=== PATIENT | female | born 2005 | race Caucasian/White ===

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

== ENCOUNTER 2023-02-13 16:30 | Emergency (ER) | payer OTHER ==
[2023-02-13 16:44] VITALS: TEMP 98.6
[2023-02-13] MEDS ORDERED: SODIUM CHLORIDE 0.9% 1,000 ML IV STA (17:44)
[2023-02-13 17:58] LABS: Basophils % (A) 0 %; Eosinophils # (A) 0.2 k/uL (0-0.7); Eosinophils % (A) 2 %; HCT 40.9 % (34.0-46.0); HGB 14.3 gm/dL (11.4-16.0); Lymphocytes # (A) 2.9 k/uL (1.0-4.8); Lymphocytes % (A) 28 %; MCH 29.1 pg (25.0-35.0); MCV 83.2 fL (80.0-100.0); Mean Platelet Volume 7.9; Monocytes # (A) 0.4 k/uL (0-1.0); Monocytes % (A) 4 %; Neutrophils # (A) 6.6 k/uL (1.3-7.7); Neutrophils % (A) 64 %; Platelet Count 238 k/uL (150-450); RBC 4.91 m/uL (3.80-5.40); RDW 12.4 % (11.5-15.5); WBC 10.3 k/uL (4.0-11.0)
[2023-02-13 18:10] LABS: ALT 42 U/L (4-34); AST 39 U/L (14-36); African American GFR (CKD) >90 (>60 ml/min/1.73 sqM); Albumin 4.6 g/dL (3.5-5.0); Alkaline Phosphatase 81 U/L (38-126); Anion Gap 11 mmol/L; Blood Urea Nitrogen 7 mg/dL (7-17); Calcium 9.7 mg/dL (8.4-10.2); Carbon Dioxide 22 mmol/L (22-30); Chloride 103 mmol/L (98-107); Glucose 102 mg/dL (74-99); Non-African American GFR(CKD) >90 (>60 ml/min/1.73 sqM); Sodium 136 mmol/L (137-145); Total Bilirubin 0.5 mg/dL (0.2-1.3)
[2023-02-13 18:19] LABS: Appearance,Urine Clear (Clear); Bilirubin,Urine Negative (Negative); Blood,Urine Negative (Negative); Color,Urine Colorless; Glucose,Urine (UA) Negative (Negative); Ketones,Urine 1+ (Negative); Leukocyte Esterase,Urine Negative (Negative); Nitrite,Urine Negative (Negative); PH, Urine 6.5 (5.0-8.0); Protein,Urine Negative (Negative); Specific Gravity,Urine 1.004 (1.001-1.035); Urobilinogen,Urine <2.0 mg/dL (<2.0)
[2023-02-13 18:22] LABS: HCG,Qualitative Serum Not Detected
[2023-02-13 18:37] LABS: INR 0.9 (<1.2); Partial Thromboplastin Time 26.1 sec (22.0-30.0); Prothrombin Time 9.4 sec (9.0-12.0)
--- NOTE | 2023-02-13 19:25 | XR ---
EXAMINATION TYPE: XR chest 2V DATE OF EXAM: 02/13/2023 6:10 PM COMPARISON: Chest radiographs from 10/08/2022 TECHNIQUE: XR chest 2V Frontal and lateral views of the chest. CLINICAL INDICATION:Female, 17 years old with history of Chest Pain; FINDINGS: Lungs/Pleura: There is no evidence of pleural effusion, focal consolidation, or pneumothorax. Pulmonary vascularity: Unremarkable. Heart/mediastinum: Cardiomediastinal silhouette is unremarkable. Musculoskeletal: No acute osseous pathology. IMPRESSION: No acute cardiopulmonary disease/process. No significant change from prior examination.
--- NOTE | 2023-02-13 19:50 | ED ---
Chest Pain HPI - General Chief Complaint: Chest Pain Stated Complaint: Chest Pain, sent by Urgent Care Time Seen by Provider: 02/13/23 17:23 Source: patient Mode of arrival: wheelchair Limitations: no limitations - History of Present Illness Initial Comments: 17-year-old female presenting with chief complaint of chest pain. Intermittent pain is been ongoing since noon today. Sharp in nature. It appears to be pleuritic from the patient's description. She denies shortness of breath. No palpitations. No nausea, vomiting, abdominal pain. No URI like symptoms. No fevers or chills. No control pills, recent long travel, recent surgery. - Related Data Home Medications Medication Instructions Recorded Confirmed Norelgestromin/Ethin.estradiol 1 patch TRANSDERM DIRECTED 02/13/23 02/13/23 [Xulane 150-35 Mcg/Day Patch] Allergies Allergy/AdvReac Type Severity Reaction Status Date / Time No Known Allergies Allergy Verified 02/13/23 16:43 Review of Systems ROS Statement: Those systems with pertinent positive or pertinent negative responses have been documented in the HPI. ROS Other: All systems not noted in ROS Statement are negative. EKG Findings - EKG Comments: EKG Findings:: Sinus rhythm with short FL interval. Ventricular rate 62. FL interval 105. QRS 94. QT 411. QTC 416. Normal axis. Past Medical History Past Medical History: Asthma History of Any Multi-Drug Resistant Organisms: None Reported Past Surgical History: No Surgical Hx Reported Past Psychological History: No Psychological Hx Reported Smoking Status: Never smoker Past Alcohol Use History: None Reported Past Drug Use History: None Reported General Exam Limitations: no limitations General appearance: alert, in no apparent distress Head exam: Present: atraumatic, normocephalic, normal inspection Eye exam: Present: normal appearance, EOMI Neck exam: Present: normal inspection, full ROM Respiratory exam: Present: normal lung sounds bilaterally. Absent: respiratory distress, wheezes, rales, rhonchi, stridor Cardiovascular Exam: Present: regular rate, normal rhythm, normal heart sounds. Absent: systolic murmur, diastolic murmur, rubs, gallop, clicks Extremities exam: Absent: pedal edema Neurological exam: Present: alert, oriented X3, CN II-XII intact Psychiatric exam: Present: normal affect, normal mood Skin exam: Present: warm, dry, intact, normal color. Absent: rash Course Vital Signs 02/13/23 02/13/23 02/13/23 16:41 19:00 19:53 Temperature 98.6 F 98.6 F Pulse Rate 63 58 L 56 L Respiratory 20 12 16 Rate Blood Pressure 144/81 125/81 117/71 O2 Sat by Pulse 100 98 98 Oximetry Chest Pain MDM - MDM Was pt. sent in by a medical professional or institution (, HERNANDO, BEARING MACHINE OPERATOR, urgent care, hospital, or senior living...) When possible be specific @ -No Did you speak to anyone other than the patient for history (EMS, parent, family, police, friend...)? What history was obtained from this source @ -No Did you review nursing and triage notes (agree or disagree)? Why? @ -I reviewed and agree with nursing and triage notes Were old charts reviewed (outside hosp., previous admission, EMS record, old EKG, old radiological studies, urgent care reports/EKG's, senior living records)? Report findings @ -No old charts were reviewed Differential Diagnosis (chest pain, altered mental status, abdominal pain women, abdominal pain men, vaginal bleeding, weakness, fever, dyspnea, syncope, headache, dizziness, GI bleed, back pain, seizure, CVA, palpatations, mental health, musculoskeletal)? @ -MDM Differential Chest Pain: Stable Angina, Unstable Angina, STEMI, NSTEMI Aortic Dissection, Pneumothorax, Musculoskeletal, Esophageal Spasm GERD, Cholecystitis, Pancreatitis, Zoster This is not meant to be an all-inclusive list. EKG interpreted by me (3pts min.). @ -As above X-rays interpreted by me (1pt min.). @ chest x-ray shows no acute cardiopulmonary process CT interpreted by me (1pt min.). @ -None done U/S interpreted by me (1pt. min.). @ -None done What testing was considered but not performed or refused? (CT, X-rays, U/S, labs)? Why? @ -None What meds were considered but not given or refused? Why? @ -None Did you discuss the management of the patient with other professionals (professionals i.e. HERNANDO Deluca, BEARING MACHINE OPERATOR, lab, RT, psych nurse, social media coordinator, maternity nurse, teacher, fire prevention officer, high risk case manager)? Give summary @ -No Was smoking cessation discussed for >3mins.? @ -No Was critical care preformed (if so, how long)? @ -No Were there social determinants of health that impacted care today? How? (Homelessness, low income, unemployed, alcoholism, drug addiction, transportation, low edu. Level, literacy, decrease access to med. care, [facility], rehab)? @ -No Was there de-escalation of care discussed even if they declined (Discuss DNR or withdrawal of care, Hospice)? DNR status @ -No What co-morbidities impacted this encounter? (DM, HTN, Smoking, COPD, CAD, Cancer, CVA, ARF, Chemo, Hep., AIDS, mental health diagnosis, sleep apnea, morbid obesity)? @ -None Was patient admitted / discharged? Hospital course, mention meds given and route, prescriptions, significant lab abnormalities, going to OR and other pertinent info. @ -17-year-old female presenting with chief complaint of chest pain that started today. Sharp and pleuritic in nature. Physical examination unremarkable. Laboratory shows no leukocytosis or anemia. Negative troponin and d-dimer. EKG shows no ischemic changes. Negative hCG. Negative chest x- ray. On reassessment patient is resting comfortably in bed. She is educated on today's findings and on treatment of musculoskeletal chest pain and anxiety. Follow-up with PCP. Report back to ER with any new or worsening symptoms. Discussed return parameters and answered all questions. Patient conveyed verbal understanding and agreed to the plan. I discussed this case in detail with my attending Dr. Mcneil Undiagnosed new problem with uncertain prognosis? @ -No Drug Therapy requiring intensive monitoring for toxicity (Heparin, Nitro, Insulin, Cardizem)? @ -No Were any procedures done? @ -No Diagnosis/symptom? @ -Chest wall pain Acute, or Chronic, or Acute on Chronic? @ -Acute Uncomplicated (without systemic symptoms) or Complicated (systemic symptoms)? @ -Uncomplicated Side effects of treatment? @ -No Exacerbation, Progression, or Severe Exacerbation? @ -No Poses a threat to life or bodily function? How? (Chest pain, USA, DE, pneumonia, PE, COPD, DKA, ARF, appy, cholecystitis, CVA, Diverticulitis, Homicidal, Suicidal, threat to staff... and all critical care pts) @ -low likelihood Disposition Clinical Impression: Chest wall pain Disposition: HOME SELF-CARE Condition: Good Instructions (If sedation given, give patient instructions): Chest Pain (ED), Costochondritis (ED) Additional Instructions: Follow-up with PCP. Report back to ER with any new or worsening symptoms. Take Motrin and Tylenol as needed for pain control. Is patient prescribed a controlled substance at d/c from ED?: No Referrals: None,Stated [Primary Care Provider] - 1-[address] [facility] [NON-STAFF] - 1-2 days Time of Disposition: 19:50
[2023-02-13 19:55] VITALS: BP 117/71; PULSE 56; RESP 16
== END 2023-02-13 20:02 | disposition home or self-care (01) ==
LOC: EC 16:30
DX: R07.89 Other chest pain (principal); J45.909 Unspecified asthma, uncomplicated
CPT/HCPCS: 36415; 71046; 80053; 81003; 83735; 84484; 84703; 85025; 85379; 85610; 85730; 93005; 96360; 99285

== ENCOUNTER → 2023-10-24 | Outpatient (CLI) | payer MEDICAID ==
--- NOTE | 2023-10-25 10:06 | XR ---
EXAMINATION TYPE: XR scoliosis survey, 2 views DATE OF EXAM: 10/24/2023 Comparison: None Clinical History: 18-year-old female M54.9 DORSALGIA, UNSPECIFIED Findings: There are 2 levoconvex undulations of the thoracic spine. Superiorly with a Parra angle of 18 degrees and inferiorly with a Parra angle of 15 degrees. There are small T12 ribs. All pedicles are visualized. Transitional lumbosacral segment denoted as a sacralized L5. Accentuated lower lumbar lordosis. Slightly accentuated thoracic kyphosis. Impression: 1. 2 levoconvex curvatures within the thoracic spine, superiorly with a Parra angle of 18 degrees and inferiorly with a Parra angle of 15 degrees. 2. Small T12 ribs and a transitional lumbosacral segment denoted as a sacralized L5. 3. Accentuated lumbar lordosis and thoracic kyphosis.
== END | disposition home or self-care (01) ==
LOC: RADXRMAIN 16:32
PROVIDERS: ATTEND Family Medicine
DX: M40.46 Postural lordosis, lumbar region (principal); M40.04 Postural kyphosis, thoracic region
CPT/HCPCS: 72082

== ENCOUNTER → 2024-01-27 | Outpatient (CLI) | payer MEDICAID ==
--- NOTE | 2024-01-28 14:15 | MR ---
EXAMINATION TYPE: MR tspine/lspine wo con DATE OF EXAM: 01/27/2024 7:19 PM CLINICAL INDICATION:Female, 18 years old with history of M41.9 SCOLIOSIS, UNSPECIFIED; M5450 LOW BACK PAIN; PHH, Mid and low back pain and numbness x4 years, Scoliosis COMPARISON: TECHNIQUE: Multi planar, multi sequence imaging was performed utilizing: T1-weighted, T2-weighted, a nd turbo inversion recovery thoracic and lumbar spine. IV Contrast: cc . None. FINDINGS: Alignment: The thoracic and lumbar vertebral bodies have preserved heights and mild scoliotic alignme nt. Cord: Abnormal cord signal in the lower cervical spine measuring at least 15 mm in length. The remain neftali of the cord is within normal limits. Bones/Discs: Bone signal is within normal limits. No significant degeneration changes throughout the spine. THORACIC: No evidence significant spinal canal or neural foraminal stenosis. Spinal cord is within no rmal limits. LUMBAR: T12-L1: No evidence of significant spinal canal stenosis or neural foraminal stenosis. L1-L2: No evidence of significant spinal canal stenosis or neural foraminal stenosis. L2-L3: No evidence of significant spinal canal stenosis or neural foraminal stenosis. L3-L4: No evidence of significant spinal canal stenosis or neural foraminal stenosis. L4-L5: No evidence of significant spinal canal stenosis or neural foraminal stenosis. L5-S1: The disc is rounded posterior morphology without significant spinal canal stenosis. Facet join t arthropathy with mild neural foraminal stenosis. Other findings: None. IMPRESSION: 1. Abnormal cord signal the cervical spine further evaluation MRI cervical spine without IV contrast recommended. Correlate for demyelination. 2. No significant spinal canal or neural foraminal stenosis. 3. Mild scoliosis changes.
== END | disposition home or self-care (01) ==
LOC: RADMRIMAIN 18:12
PROVIDERS: ATTEND Orthopaedic Surgery
DX: M41.9 Scoliosis, unspecified (principal); M54.50 Low back pain, unspecified
CPT/HCPCS: 72146; 72148

== ENCOUNTER → 2024-03-12 | Outpatient (CLI) | payer MEDICAID ==
--- NOTE | 2024-03-13 08:20 | MR ---
EXAMINATION TYPE: MR cervical spine wo con DATE OF EXAM: 03/12/2024 7:59 PM CLINICAL INDICATION: Female, 18 years old with history of R90.89; PHH, prev tsp mr showed lower cervi estefanía abnormality - left arm weakness - abnormal extremity weakness and reflex COMPARISON: None. TECHNIQUE: Multi planar, multi sequence imaging was performed utilizing: T1-weighted, T2-weighted, an d turbo inversion recovery imaging of the cervical spine. IV Contrast: cc (none if empty) FINDINGS: Alignment: The cervical vertebral bodies have preserved heights. Alignment is within normal limits gi dipti patient positioning. Bones: Bone signal is within normal limits. No abnormal bone marrow edema on inversion recovery seque nces. Cord: High T2 signal cord signal in the central cord at the level C6 measuring 9 x 2 x 2 mm. The spin al cord is otherwise unremarkable with regards to their signal intensity and morphology. Discs: Intervertebral disc signal is maintained. C2-C3: No significant disc pathology. The spinal canal is patent. No neural foraminal stenosis. C3-C4: No significant disc pathology. The spinal canal is patent. No neural foraminal stenosis. C4-C5: No significant disc pathology. The spinal canal is patent. No neural foraminal stenosis. C5-C6: No significant disc pathology. The spinal canal is patent. No neural foraminal stenosis. C6-C7: No significant disc pathology. The spinal canal is patent. No neural foraminal stenosis. C7-T1: No significant disc pathology. The spinal canal is patent. No neural foraminal stenosis. Other: None. IMPRESSION: 1. No evidence for disc herniation or significant spinal canal stenosis. 2. 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 No evidence of significant spinal canal or neural foraminal stenosis.
== END | disposition home or self-care (01) ==
LOC: RADMRIMAIN 19:42
PROVIDERS: ATTEND Family Medicine
DX: G95.0 Syringomyelia and syringobulbia (principal); R90.89 Other abnormal findings on diagnostic imaging of central nervous system; G89.29 Other chronic pain; M54.9 Dorsalgia, unspecified; M41.25 Other idiopathic scoliosis, thoracolumbar region
CPT/HCPCS: 72141

== ENCOUNTER → 2024-03-30 | Outpatient (CLI) | payer MEDICAID ==
--- NOTE | 2024-03-30 22:54 | MR ---
EXAMINATION TYPE: MR brain wo con DATE OF EXAM: 03/30/2024 COMPARISON: 08/04/2020 CT brain HISTORY: syrinx of spinal cord, syncpe and collapse, headaches, vision loss, checking for MS CONTRAST: Performed utilizing 0 mL intravenous Gadavist gadolinium contrast. TECHNIQUE: Multiplanar, multiecho imaging on a 3.0 Patricia magnet is performed through the brain. Stud y is performed within 24 hours of arrival to the hospital. The craniovertebral junction is normal. The pituitary is normal. Diffusion-weighted imaging is performed. No abnormal hyperintensity is present to suggest an acute i ntracranial infarct or acute ischemic change. No suspicious white matter changes are evident. Right ventricular regions and deep white matter appea r normal Ventricles and sulci are appropriate for the patient age. Refused contrast IMPRESSION: 1. No suspicious acute intracranial process. 2. No suspicious white matter changes to suggest underlying multiple sclerosis. [facility], , 03/30/2024 10:52 PM
== END | disposition home or self-care (01) ==
LOC: RADMRIMAIN 19:30
PROVIDERS: ATTEND Family Medicine
DX: G95.0 Syringomyelia and syringobulbia (principal); R55 Syncope and collapse; R90.89 Other abnormal findings on diagnostic imaging of central nervous system; H54.7 Unspecified visual loss
CPT/HCPCS: 70551

== ENCOUNTER 2024-04-16 15:55 | Emergency (ER) | payer MEDICAID ==
[2024-04-16 16:11] VITALS: BP 131/81; PULSE 68; RESP 18; TEMP 97.9
--- NOTE | 2024-04-16 16:41 | ED ---
Extremity Problem HPI - General Chief complaint: Extremity Problem,Nontraumatic Stated complaint: R leg pain Time Seen by Provider: 04/16/24 16:15 Source: patient, RN notes reviewed Mode of arrival: ambulatory Limitations: no limitations - History of Present Illness Initial comments: 18-year-old female presenting with right lower leg pain. States she was sitting on her desk at work when she suddenly began to feel a right lower extremity that lasted about 2 minutes. Patient continues to experience tingling in the calf and foot. Denies trauma or injury. Denies redness or swelling. Denies back pain. She has never had this pain before. Denies oral contraceptive pills. She is a non-smoker. Denies recent surgeries or travels or history of blood clots. - Related Data Home Medications Medication Instructions Recorded Confirmed Norelgestromin/Ethin.estradiol 1 patch TRANSDERM DIRECTED 02/13/23 02/13/23 [Xulane 150-35 Mcg/Day Patch] Allergies Allergy/AdvReac Type Severity Reaction Status Date / Time No Known Allergies Allergy Verified 02/13/23 16:43 Review of Systems ROS Statement: Those systems with pertinent positive or pertinent negative responses have been documented in the HPI. ROS Other: All systems not noted in ROS Statement are negative. Past Medical History Past Medical History: Asthma Additional Past Medical History / Comment(s): Scoliosis History of Any Multi-Drug Resistant Organisms: None Reported Past Surgical History: No Surgical Hx Reported Past Psychological History: No Psychological Hx Reported Smoking Status: Never smoker Past Alcohol Use History: Occasional Past Drug Use History: None Reported General Exam Limitations: no limitations General appearance: alert, in no apparent distress Head exam: Present: atraumatic, normocephalic, normal inspection Right Knee exam: Present: normal inspection, full ROM. Absent: tenderness, swelling Lower Leg exam: Present: normal inspection, full ROM. Absent: tenderness, swelling, abrasion Ankle exam: Present: normal inspection, full ROM. Absent: tenderness, swelling Foot/Toe exam: Present: normal inspection, full ROM. Absent: tenderness, swelling Neurovascular tendon exam: Present: no vascular compromise. Absent: pulse deficit, abnormal cap refill, sensory deficit Neurological exam: Present: alert, oriented X3 Psychiatric exam: Present: normal affect, normal mood Skin exam: Present: warm, dry, intact, normal color. Absent: rash Course Vital Signs 04/16/24 16:04 Temperature 97.9 F Pulse Rate 68 Respiratory 18 Rate Blood Pressure 131/81 O2 Sat by Pulse 97 Oximetry Medical Decision Making - Medical Decision Making Was pt. sent in by a medical professional or institution (HERNANDO Deluca, COAGULATING DRYING SUPERVISOR, urgent care, hospital, or longterm...) When possible be specific @ -No Did you speak to anyone other than the patient for history (EMS, parent, family, police, friend...)? What history was obtained from this source @ -No Did you review nursing and triage notes (agree or disagree)? Why? @ -I reviewed and agree with nursing and triage notes Were old charts reviewed (outside hosp., previous admission, EMS record, old EKG, old radiological studies, urgent care reports/EKG's, longterm records)? Report findings @ -No old charts were reviewed Differential Diagnosis (chest pain, altered mental status, abdominal pain women, abdominal pain men, vaginal bleeding, weakness, fever, dyspnea, syncope, headache, dizziness, GI bleed, back pain, seizure, CVA, palpatations, mental health, musculoskeletal)? @ -Differential Musculoskeletal Muscular strain, contusion, ligament sprain, fracture, arthritis, septic arthritis, bursitis, cellulitis, muscle spasm, nerve compression, DVT, arterial occlusion, herpes zoster, electrolyte abnormality, tumor.... This is not meant to be in all inclusive list EKG interpreted by me (3pts min.). @ -None X-rays interpreted by me (1pt min.). @ -X-ray right tib-fib reveals no acute process CT interpreted by me (1pt min.). @ -None done U/S interpreted by me (1pt. min.). @ -Ultrasound Doppler right lower extremity reveals no evidence for DVT What testing was considered but not performed or refused? (CT, X-rays, U/S, labs)? Why? @ -Patient refused blood work today What meds were considered but not given or refused? Why? @ -None Did you discuss the management of the patient with other professionals (professionals i.e. HERNANDO Deluca, COAGULATING DRYING SUPERVISOR, lab, RT, psych nurse, social welfare research worker, compressor station engineer chief, teacher, property officer, case coordinator)? Give summary @ -No Was smoking cessation discussed for >3mins.? @ -No Was critical care preformed (if so, how long)? @ -No Were there social determinants of health that impacted care today? How? (Homelessness, low income, unemployed, alcoholism, drug addiction, transportation, low edu. Level, literacy, decrease access to med. care, senior care, rehab)? @ -No Was there de-escalation of care discussed even if they declined (Discuss DNR or withdrawal of care, Hospice)? DNR status @ -No What co-morbidities impacted this encounter? (DM, HTN, Smoking, COPD, CAD, Cancer, CVA, ARF, Chemo, Hep., AIDS, mental health diagnosis, sleep apnea, morbid obesity)? @ -None Was patient admitted / discharged? Hospital course, mention meds given and route, prescriptions, significant lab abnormalities, going to OR and other pertinent info. @ -Discharged. This is a 18-year-old female presenting for episode of right lower leg pain earlier today. Denies trauma or injury. Neurovascularly intact. No sign of bacterial infection. Patient refused labs today. Ultrasound negative for DVT. X-ray no acute process. Discussed there is no sign of e mergent etiology. Symptoms likely due to muscle spasms. Advised aggressive hydration and follow-up with PCP with persistent symptoms. Patient is agreeable to plan. Case discussed with my ED attending Dr. Blakely. Patient discharged in stable condition. Undiagnosed new problem with uncertain prognosis? @ -No Drug Therapy requiring intensive monitoring for toxicity (Heparin, Nitro, Insulin, Cardizem)? @ -No Were any procedures done? @ -No Diagnosis/symptom? @ -Right leg muscle spasm Acute, or Chronic, or Acute on Chronic? @ -Acute Uncomplicated (without systemic symptoms) or Complicated (systemic symptoms)? @ -Uncomplicated Side effects of treatment? @ -No Exacerbation, Progression, or Severe Exacerbation? @ -No Poses a threat to life or bodily function? How? (Chest pain, USA, MS, pneumonia, PE, COPD, DKA, ARF, appy, cholecystitis, CVA, Diverticulitis, Homicidal, Suicidal, threat to staff... and all critical care pts) @ -No Disposition Clinical Impression: Muscle spasm of right leg Disposition: HOME SELF-CARE Condition: Stable Instructions (If sedation given, give patient instructions): Muscle Spasm (ED) Additional Instructions: Please return to the Emergency Department if symptoms worsen or any other concerns. Is patient prescribed a controlled substance at d/c from ED?: No Referrals: Milan Payne MD [Primary Care Provider] - 1-2 days Time of Disposition: 18:15
--- NOTE | 2024-04-16 17:37 | US ---
EXAMINATION TYPE: US venous doppler duplex LE RT DATE OF EXAM: 04/16/2024 4:39 PM COMPARISON: NONE CLINICAL INDICATION: Female, 18 years old with history of pain; pain in rt leg today. No hx of DVT. Not on blood thinners TECHNIQUE: The lower extremity deep venous system is examined utilizing real time linear array sonog karin with graded compression, color doppler sonography, and spectral doppler. SIDE PERFORMED: Right FINDINGS: VESSELS IMAGED: Common Femoral Vein Deep Femoral Vein Greater Saphenous Vein * Femoral Vein Popliteal Vein Small Saphenous Vein * Proximal Calf Veins (* superficial vessels) Right Leg: No evidence for DVT Grayscale, color doppler, spectral doppler imaging performed of the deep veins of the lower extremiti es. IMPRESSION: 1. No ultrasound evidence for deep venous thrombosis of the right lower extremity [facility], , 04/16/2024 5:35 PM
--- NOTE | 2024-04-16 17:47 | XR ---
EXAMINATION TYPE: XR tibia fibula RT DATE OF EXAM: 04/16/2024 CLINICAL HISTORY: pain TECHNIQUE: AP and lateral images of the right tibia and fibula are obtained. COMPARISON: None. FINDINGS: There is no acute fracture/dislocation evident. The joint spaces appear within normal hernandez its. The overlying soft tissue appears unremarkable. IMPRESSION: There is no acute fracture or dislocation seen. ICD 10 NO FRACTURE, INITIAL EVALUATION [facility], , 04/16/2024 5:45 PM
== END 2024-04-16 18:22 | disposition home or self-care (01) ==
LOC: EC 15:55
DX: M62.838 Other muscle spasm (principal)
CPT/HCPCS: 99284